=== PATIENT | female | born 1975 | race Caucasian/White ===

== ENCOUNTER 2018-02-06 22:19 | Emergency (ER) | payer MEDICAID ==
--- NOTE | 2018-02-06 22:41 | EDM.PDOC ---
ED HPI GENERAL MEDICAL PROBLEM - General Chief Complaint: Lower Extremity Injury/Pain Stated Complaint: ROLLED LEFT ANKLE Time Seen by Provider: 02/06/18 22:33 Source of Information: Reports: Patient, RN Notes Reviewed History Limitations: Reports: No Limitations - History of Present Illness INITIAL COMMENTS - FREE TEXT/NARRATIVE: Here with and daughter Chief complaint Left ankle injury History of present illness 42-year-old female was chasing goats at home, rolled her left ankle, unable to weight-bear, needed assistance to get back into the house. 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 Musculoskeletal: Reports: Joint Pain (Left ankle), Joint Swelling (Left ankle), Other (Unable to weight-bear left ankle, no open wounds) ED EXAM, GENERAL - Physical Exam Exam: See Below Exam Limited By: No Limitations General Appearance: Alert, Mild Distress, Other (Appears well, injury confined to right ankle) Head: Atraumatic, Normocephalic Neck: Normal Inspection Respiratory/Chest: No Respiratory Distress, No Accessory Muscle Use Cardiovascular: Normal Peripheral Pulses, Regular Rate, Rhythm, Other ( Peripheral capillary refill movement and sensation normal) Extremities: Joint Swelling (Lateral malleolus and slightly superior to that left ankle), Limited Range of Motion, Other (Distal sensation intact) Neurological: Alert, Oriented, No Motor/Sensory Deficits Skin Exam: Warm, Dry, Intact, Normal Color, No Rash Course - Vital Signs Last Recorded V/S: Last Vital Signs Temp 36.9 C 02/06/18 22:28 Pulse 72 02/06/18 22:28 Resp 18 02/06/18 22:28 BP 155/79 H 02/06/18 22:28 Pulse Ox 99 02/06/18 22:28 - Orders/Labs/Meds Orders: Active Orders 24 hr Category Date Time Status Orthopedic Treatments [RC] ASDIRECTED Care 02/06/18 22:57 Ordered Ankle Min 3V Lt [CR] Stat Exams 02/06/18 22:36 Taken - Re-Assessments/Exams Free Text/Narrative Re-Assessment/Exam: 02/06/18 22:41 42-year-old female with isolated injury to left ankle, rolled while running. Unable to weight-bear and she does have swelling above the malleolus, consequently x-rays are indicated She declined analgesics prior to X-rays. 02/06/18 23:00 Nondisplaced transverse fracture distal left fibula Cam Walker Crutches See discharge instructions Departure - Departure Time of Disposition: 23:00 Disposition: Home, Self-Care 01 Condition: Good Clinical Impression: Fracture of distal end of fibula Qualifiers: Encounter type: initial encounter Fracture type: closed Fracture morphology: unspecified fracture morphology Laterality: left Qualified Code(s): S82.832A - Other fracture of upper and lower end of left fibula, initial encounter for closed fracture - Discharge Information Prescriptions: Acetaminophen/HYDROcodone [[place] 325-5 MG] 1 tab PO Q4H PRN #10 tab PRN Reason: Moderate to severe pain Instructions: Crutch Use, Adult, Ankle Fracture Referrals: Ethan Rod MD [Primary Care Provider] - Forms: ED Department Discharge Additional Instructions: This appears to be a nondisplaced fracture It should heal with simple immobilization but he can take 6-8 weeks to completely heal. Use crutches until you can weight-bear See your physician in one week for recheck of your ankle Especially in the first few days elevating the leg can help with pain considerably - My Orders Last 24 Hours: My Active Orders 02/06/18 22:36 Ankle Min 3V Lt [CR] Stat 02/06/18 22:57 Orthopedic Treatments [RC] ASDIRECTED - Assessment/Plan Last 24 Hours: My Active Orders 02/06/18 22:36 Ankle Min 3V Lt [CR] Stat 02/06/18 22:57 Orthopedic Treatments [RC] ASDIRECTED
--- NOTE | 2018-02-07 08:54 | CR ---
Ankle Min 3V Lt CLINICAL HISTORY: Pain, fall FINDINGS: The soft tissues are swollen. There is a transverse fracture of the distal fibula. There is a small calcaneal spur. Ankle mortise is symmetric Impression: Transverse fracture of the distal fibula
== END 2018-02-06 23:15 | disposition home or self-care (01) ==
LOC: JP.ED 22:19
DX: S82.832A Other fracture of upper and lower end of left fibula, initial encounter for closed fracture (principal); W19.XXXA Unspecified fall, initial encounter; Y92.009 Unspecified place in unspecified non-institutional (private) residence as the place of occurrence of the external cause
CPT/HCPCS: 73610-26-LT; 73610-LT; 99284

== ENCOUNTER 2024-01-04 08:33 | Emergency (ER) | payer MEDICAID ==
[2024-01-04] MEDS ORDERED: Sodium Chloride 0.9% 10 ML Syringe FLUSH PRN (08:56)
[2024-01-04] MEDS ORDERED: Naloxone 0.4 MG/ML SDV IVPUSH PRN (08:58)
[2024-01-04 09:02] LABS: BASOPHILS ABSOLUTE AUTO 0.07 K/uL (0.00-0.10); BASOPHILS PERCENT AUTO 0.7 % (0.1-1.3); EOSINOPHILS ABSOLUTE AUTO 0.18 K/uL (0.00-0.40); EOSINOPHILS PERCENT AUTO 1.9 % (0.0-5.4); HEMATOCRIT 38.3 % (34.3-46.0); HEMOGLOBIN 13.7 g/dL (11.2-15.5); IMMATURE GRAN ABSOLUTE AUTO 0.05 K/uL (0.00-0.23); IMMATURE GRAN PERCENT AUTO 0.5 % (0.0-0.7); LYMPHOCYTES ABSOLUTE AUTO 3.29 K/uL (0.8-3.3); LYMPHOCYTES PERCENT AUTO 34.7 % (11.4-47.7); MEAN CORPUSCULAR HEMOGLOBIN 32.3 pg (31.6-35.5); MEAN CORPUSCULAR HGB CONC 35.8 g/dL (31.6-35.5); MEAN CORPUSCULAR VOLUME 90.3 fL (81.4-99.0); MONOCYTES ABSOLUTE AUTO 0.73 K/uL (0.20-0.90); MONOCYTES PERCENT AUTO 7.7 % (3.3-12.6); NEUTROPHILS ABSOLUTE AUTO 5.15 K/uL (1.0-7.6); NEUTROPHILS PERCENT AUTO 54.5 % (40.0-78.1); PLATELET COUNT,PLT 246 K/uL (130-375); RED BLOOD CELL COUNT 4.24 M/uL (3.77-5.24); WHITE BLOOD CELL COUNT,WBC 9.5 K/uL (3.2-11.0)
[2024-01-04] MEDS: Aspirin 81 MG Tab.Chew PO ONE (09:04)
[2024-01-04] MEDS: HYDROmorphone 0.5 MG/0.5 ML Syringe IVPUSH PRN (09:05)
[2024-01-04] MEDS: Nitroglycerin 0.4 MG Tab.SL SL ONE (09:05)
[2024-01-04 09:16] LABS: CALCIUM 9.2 mg/dL (8.5-10.1); CREATININE 0.8 mg/dL (0.6-1.0); EST CRCL DRUG DOSING (CG) 73.46 mL/min; POTASSIUM,K 3.3 mmol/L (3.6-5.2)
[2024-01-04 09:17] LABS: C-REACTIVE PROTEIN < 0.50 mg/dL (<0.50); TROPONIN I HIGH SENSITIVITY 4.4 pg/mL (<=60.3)
[2024-01-04 09:18] LABS: ANION GAP 15.3 mmol/L (5.0-14.0)
[2024-01-04 09:22] LABS: INR 0.9; PROTHROMBIN TIME 9.6 sec (9.2-10.6); PTT,PARTIAL THROMBOPLSTIN TIME 26.3 sec (21.8-27.3)
[2024-01-04] MEDS ORDERED: HYDROmorphone 0.5 MG/0.5 ML Syringe IVPUSH ONE (09:38)
[2024-01-04] MEDS: Sodium Chloride 0.9% 100 ML IV ONE (09:45)
[2024-01-04] MEDS: Iopamidol 612 MG/ML 100 ML Bottle IV PRN (09:45)
[2024-01-04] MEDS: Sodium Chloride 0.9% 10 ML Syringe FLUSH PRN (09:45)
[2024-01-04] MEDS: Acetaminophen 500 MG Tab PO ONE (09:46)
[2024-01-04] MEDS: Potassium Chloride 20 MEQ Tab.ER PO ONE (10:16)
== END 2024-01-04 10:55 | disposition home or self-care (01) ==
LOC: JP.ED 08:33
DX: J90 Pleural effusion, not elsewhere classified (principal); R03.0 Elevated blood-pressure reading, without diagnosis of hypertension
CPT/HCPCS: 36415; 71275; 80048; 81025; 84484; 85025; 85610; 85730; 86140; 93005; 96374; 99285; A9270; J1170; J3490; Q9967; 93010; 99283